=== PATIENT | female | born 1970 | race African-American/Black ===

== ENCOUNTER → 2021-01-10 07:46 | Outpatient (CLI) | payer BC, SELFPAY ==
--- NOTE | ~2021-01-10 | MM_ITS ---
EXAMINATION: MM screening bailey BI w opal HISTORY: Screening TECHNIQUE: Craniocaudal and mediolateral oblique 3-D tomosynthesis images were obtained and synthetic 2-D images were generated. CAD analysis was submitted and interpreted. COMPARISON: No prior studies for comparison. BREAST PARENCHYMAL COMPOSITION: There are scattered areas of fibroglandular density. FINDINGS: There are bilateral breast asymmetries on CC images. There are no suspicious calcifications or architectural distortion. IMPRESSION: 1. Bilateral breast asymmetries. 2. Recommend comparison to previous outside mammograms. BI-RADS Category 0: Incomplete: Needs additional imaging evaluation. Reviewed, dictated and finalized at location A.
== END ==
PROVIDERS: PCP Internal Medicine; Visit Provider Internal Medicine
DX: Z12.31 Encounter for screening mammogram for malignant neoplasm of breast (principal); R92.8 Other abnormal and inconclusive findings on diagnostic imaging of breast
CPT/HCPCS: 77063; 77067

== ENCOUNTER → 2021-01-19 00:31 | Outpatient (CLI) | payer BC, SELFPAY ==
[2021-01-19 21:52] LABS: SARS-CoV-2 RNA PCR Negative
== END ==
PROVIDERS: PCP Internal Medicine; Visit Provider Surgery
DX: Z01.812 Encounter for preprocedural laboratory examination (principal); Z20.822 Contact with and (suspected) exposure to COVID-19
CPT/HCPCS: C9803; U0003; U0005

== ENCOUNTER 2021-01-22 00:55 | Day surgery (SDC) | payer BC, SELFPAY ==
[2021-01-13 13:57] VITALS: BMI 29.0
--- NOTE | 2021-01-21 09:03 | P.PNAN_ITS ---
Anes - Initial Pre Proc Eval Procedure: Operation Date: 01/22/21 12:00 Proposed Procedures p Excisional Biopsy of Right Upper Quadrant Abdominal Wall Cyst, Excisional Biopsy Left Groin Cyst - Constance Elizabeth MD Date/Time: 01/21/21 09:03 Surgeon: Constance Elizabeth MD Pre Op Diagnosis: sebaceous cyst x 2 Patient Data Age: 50 Gender: F Height: 1.63 m Weight: 76.66 kg Allergies Allergy/AdvReac Type Severity Reaction Status Date / Time amoxicillin Allergy Severe Itching & Verified 01/13/21 13:56 shortness of breath meperidine [From Demerol] Allergy Severe Hives Verified 01/13/21 13:56 Home Medications Medication Instructions Recorded Confirmed Type ascorbate calcium (vitamin C) 500 500 mg PO DAILY 11/24/20 01/13/21 History mg tablet biotin 2,500 mcg capsule 2,500 mcg PO DAILY cap 11/24/20 01/13/21 History cholecalciferol (vitamin D3) 25 25 mcg PO DAILY 11/24/20 01/13/21 History mcg (1,000 unit) capsule mecobalamin (vitamin B12) 5,000 5,000 mcg PO DAILY 11/24/20 01/13/21 History mcg lozenge lactobacillus combination no.8 3 3,000 mmu cells PO DAILY 12/12/20 01/13/21 History billion cell capsule Patient hx anesthesia problems: none Family hx anesthesia problems: none PMFSH Past Medical History Medical History (Updated 01/21/21 @ 16:26 by Javier Cochran DO) Overweight (BMI 25.0-29.9) Snoring Surgical History Surgical History H/O removal of cyst of the wrist age 21 History of colonoscopy every 5 yrs Family History Family History Mother Cancer Father Cancer Diabetes mellitus Hypertension Social History Social History Smoking status: Never smoker Alcohol intake: current Drinks per week: 1 Alcohol use details: 3/MONTH Substance use: never Substance use type: does not use Living arrangements: alone 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 Questions were solicited and answers provided to the satisfaction of the patient/family/POA.
[2021-01-22 10:06] VITALS: BP 142/87; PULSE 75; RESP 16; TEMP 36.8; O2SAT 100
[2021-01-22] MEDS: LACTATED RINGERS 1,000 ML 30 ML IV CONT (10:46)
--- NOTE | 2021-01-22 11:58 | PM.IMHP ---
H&P: HPI History of Present Illness Date/Time: 01/22/21 11:58 Ms. Cárdenas presents today at the request of Dr. Cochran for evaluation. She reports having a RUQ chest wall mass and a left groin mass for at least 7 years, and since that time has noticed increase and size and intermittent tenderness of both. She has also been able express cyst-like material from both after applying warm compress. No history of infection to either site. Chief Complaint: sebaceous cyst x 2 Review of Systems Review of Systems: All systems reviewed & are unremarkable except as noted in HPI and below PMFSH Past Medical History Medical History Overweight (BMI 25.0-29.9) Snoring Surgical History Surgical History H/O removal of cyst of the wrist age 21 History of colonoscopy every 5 yrs Family History Family History Mother Cancer Father Cancer Diabetes mellitus Hypertension Social History Social History Smoking status: Never smoker Alcohol intake: current Drinks per week: 1 Alcohol use details: 3/MONTH Substance use: never Substance use type: does not use Living arrangements: alone 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 Gender identity (if verbalized by the patient): Female Spiritual care concerns: No Meds Home Medications and Allergies Home Medications Medication Instructions Recorded Confirmed Type ascorbate calcium (vitamin C) 500 500 mg PO DAILY 11/24/20 01/22/21 History mg tablet biotin 2,500 mcg capsule 2,500 mcg PO DAILY cap 11/24/20 01/22/21 History cholecalciferol (vitamin D3) 25 25 mcg PO DAILY 11/24/20 01/22/21 History mcg (1,000 unit) capsule mecobalamin (vitamin B12) 5,000 5,000 mcg PO DAILY 11/24/20 01/22/21 History mcg lozenge lactobacillus combination no.8 3 3,000 mmu cells PO DAILY 12/12/20 01/22/21 History billion cell capsule Allergies Allergy/AdvReac Type Severity Reaction Status Date / Time amoxicillin Allergy Severe Itching & Verified 01/22/21 10:16 shortness of breath meperidine [From Demerol] Allergy Severe Hives Verified 01/22/21 10:16 Vital Signs Vital Signs - 24 hr 01/22/21 10:06 Temperature 36.8 C Pulse Rate 75 Respiratory Rate 16 Blood Pressure 142/87 H Pulse Oximetry 100 Exam Const: General: cooperative, healthy appearing, comfortable and no acute distress Orientation/consciousness: patient oriented x3 Limitations: no limitations Resp: Effort & Inspection: normal respiratory effort Auscultation: clear to auscultation bilaterally Cardio: Rate: regular rate Rhythm: regular rhythm GI: Inspection: normal to inspection and Abdominal wall edema GI Palp: Yes Soft to palpation and No Tenderness to palpation present (GI) Skin: Other: RUQ epidermoid cyst - no s/s infection L pubis cyst - n s/s infection Assessment and Plan Assessment and plan (1) Sebaceous cyst: Code(s): L72.3 - Sebaceous cyst Status: Acute Assessment and Plan: will setup for exc bx given growth and symptomatology
--- NOTE | 2021-01-22 12:00 | WPDHPUPDATE1 ---
History and Physical Update Update Date/Time: 01/22/21 12:00 History and Physical has been reviewed, including an updated exam of the patient. There are NO changes in the patient's condition. Risks, benefits, and alternatives have been discussed and questions answered. Patient agrees to proceed with procedure.
[2021-01-22] MEDS: ceFAZolin 2 GM/D5W 50 ML 2 GM/50 ML BAG IVPB (12:03)
[2021-01-22] MEDS: BUPIVACAINE/EPINEPHRINE 0.5% 10 ML VIAL 50 ML INFILTRATE (12:28)
[2021-01-22 12:54] VITALS: BP 111/54; PULSE 90; RESP 12; O2SAT 100
--- NOTE | 2021-01-22 13:07 | W.PM.PROC2 ---
Procedure Note - Detailed Date of Procedure 01/22/21 Pre-op Diagnosis cyst x 2, R upper abdomen, L pubis Post-op Diagnosis same Procedure Performed Excisional biopsy right upper abdominal cyst measuring 3 x 2 cm and left pubic cyst measuring 2 x 1.5 cm Surgeon Constance Elizabeth MD Anesthesia MAC and local Indications 50-year-old female presenting to the office with right upper abdominal cyst and left pubic cyst. Patient reports this has been present for many years and has gotten larger in size. The patient reports these areas are now tender to palpation,although she has never noted any infection. Findings 3 x 2 cm right upper abdominal cyst and 2 x 1.5 cm left pubic cyst Description of Procedure The patient was taken the operating room and placed in the supine position. After adequate induction of mac anesthesia, the patient was prepped and draped in the normal sterile fashion. A time-out was then done to verify the patient's identity, as well as the procedure being performed. I began by localizing the area around both the cysts. I began with the right upper abdominal cyst. An elliptical incision was made with a 15 blade scalpel over the cyst. This was carried down through the dermis into the subcutaneous tissue. The cyst was noted to be entirely located within the subcutaneous tissue. I was able to excise the cyst in full. This will be sent to pathology for further review. Measurements were approximately 3 x 2 cm. Hemostasis was gained with the Bovie cautery. Subcutaneous tissue was closed with 3 0 Vicryl suture skin was closed with 4 Monocryl subcuticular suture. Dermabond was then placed on the wound. I then made an elliptical incision around the left pubic cyst. This was carried through the dermis into the subcutaneous tissue. The cyst was noted to be entirely within the subcutaneous tissue and excised in full. Again hemostasis was gained with the Bovie cautery. Subcutaneous tissue was closed with 3 0 Vicryl suture and skin was closed with 4 Monocryl subcuticular suture. Dermabond was placed on this wound. The patient tolerated these procedures well. Was alert and awake in the operating room postoperatively. She will be sent to the recovery room in stable condition. Estimated Blood Loss 5 Drains No Packing No Pathology yes Complications No immediate complications Condition stable Disposition PACU
[2021-01-22 13:25] VITALS: BP 125/69; PULSE 79
[2021-01-22 13:55] VITALS: BP 152/71; PULSE 66
== END 2021-01-22 14:05 | disposition home or self-care (01) ==
PROVIDERS: PCP Internal Medicine; Visit Provider Surgery
PROC: (CPT 11406; principal; 2021-01-22 12:00)
DX: L72.0 Epidermal cyst (principal)
CPT/HCPCS: 11406; 11403; 12034; 88304; 88305; J0690; J2250; J2405; J2704; J3010; J7120

== ENCOUNTER → 2021-03-09 14:21 | Outpatient (CLI) | payer BC, SELFPAY ==
--- NOTE | ~2021-03-09 | MMUS_ITS ---
EXAMINATION: MM diagnostic abiley BI w opal, US breast BI complete HISTORY: Bilateral breast asymmetries reported on 01/10/2021 screening mammogram TECHNIQUE: Additional 3-D tomosynthesis images of both breasts were performed and synthetic 2-D image s were generated. CAD analysis was submitted and interpreted. High resolution bilateral complete martha st ultrasound was performed. COMPARISON: 01/10/2021 bilateral digital screening mammogram FINDINGS: MAMMOGRAPHIC FINDINGS: There is a 6 mm benign-appearing circumscribed opacity situated anteriorly in the lower inner right b reast. No suspicious mass is noted in either breast. No architectural distortion, malignant calcifica tion, skin thickening or retraction. ULTRASOUND: Right breast: No suspicious mass is identified in the right breast. Left breast: 3.3 mm probable cyst at 12:00 3 cm from nipple 5.8 x 7 mm probable cyst at 2:00 2 cm from nipple Septated 4.7 x 9.3 mm cyst at 2:00 3 cm from nipple. 3 mm cyst at 2:00 3 cm from nipple. Oval parallel sonolucency measuring 2.2 x 4 mm at 3:00 5 cm from nipple and with through transmission , likely a small cyst 9:00 4 cm from nipple: Parallel circumscribed hypoechoic solid lesion with mildly irregular margins, measuring 4.4 x 5.2 mm. There is adjacent vascularity on color flow imaging. Considering the mildly i rregular margins, ultrasound-guided biopsy is recommended. IMPRESSION: 1. Mildly irregular 4.4 x 5.2 mm mass at left breast 9:00 position 4 cm from nipple 2. Ultrasound-guided biopsy of left breast 9:00 lesion is recommended BI-RADS category 4, suspicious findings. Dr. Parker telephoned the report and ultrasound guided biopsy recommendation on 03/10/20[address] Cochran's exchange at [phone]. Reviewed, dictated and finalized at location A. IMPRESSION: 1. Mildly irregular 4.4 x 5.2 mm mass at left breast 9:00 position 4 cm from ni pple 2. Ultrasound-guided biopsy of left breast 9:00 lesion is recommended BI-RADS category 4, suspicious findings. Dr. Parker telephoned the report and ultrasound guided biopsy recommendation on at [address] Cochran's exchange at [phone]. IMPRESSION: 1. Mildly irregular 4.4 x 5.2 mm mass at left breast 9:00 position 4 cm from ni pple 2. Ultrasound-guided biopsy of left breast 9:00 lesion is recommended BI-RADS category 4, suspicious findings. Dr. Parker telephoned the report and ultrasound guided biopsy recommendation on at [address] Cochran's exchange at [phone].
== END ==
PROVIDERS: PCP Internal Medicine; Visit Provider Internal Medicine
DX: R92.8 Other abnormal and inconclusive findings on diagnostic imaging of breast (principal)
CPT/HCPCS: 76641; 77062; 77066; G0279

== ENCOUNTER 2021-04-13 10:44 | Outpatient (CLI) | payer BC, SELFPAY ==
--- NOTE | ~2021-04-13 | MMUS_ITS ---
US breast biopsy LT w image, MM post biopsy invasive LT EXAMINATION: US GUIDED NEEDLE BIOPSY WITH VAC UUM ASSISTANCE DATE: 04/13/2021 11:59 CDT INDICATION: Left breast mass seen on prior examination. Ultrasound-guided core biopsy is requested t o evaluate for malignancy. TECHNIQUE AND FINDINGS: The risks and potential benefits of the procedure were discussed with the patient, and written inform ed consent was obtained. After sterile preparation of the left breast, 1% lidocaine was utilized for local anesthesia. 1% lidocaine with epinephrine was used for deep anesthesia. A 10G vacuum-assisted biopsy gun needle was advanced through to the outer edge of the region of inter est from a superior medial approach utilizing sonographic guidance. A total of 6 tissue core samples were obtained through the lesion located at the 9:00 position, 4 cm from the nipple. An Inrad tissu e marker clip was then placed at the biopsy site. Hemostasis was achieved. The patient tolerated procedure well and there was no evidence of immediate complication. The patien t was given verbal instructions partly is from the department. Left breast mammograms to document ti ssue marker clip placement. The tissue samples were submitted to surgical pathology for histologic an alysis. IMPRESSION: 1. Successful ultrasound-guided vacuum-assisted biopsy of left breast mass with tissue marker placem ent. Please refer to pathology report for histologic analysis. Reviewed, dictated and finalized at location A. IMPRESSION: 1. Successful ultrasound-guided vacuum-assisted biopsy of left breast mass wit h tissue marker placement. Please refer to pathology report for histologic anal ysis.
== END 2021-04-13 10:45 | disposition home or self-care (01) ==
PROVIDERS: PCP Internal Medicine; Visit Provider Internal Medicine
DX: R92.8 Other abnormal and inconclusive findings on diagnostic imaging of breast (principal)
CPT/HCPCS: 19083; 88305; 88342; A4648

== ENCOUNTER → 2021-05-15 02:51 | Outpatient (CLI) | payer BC, SELFPAY ==
[2021-05-15 18:36] LABS: SARS-CoV-2 RNA PCR Negative
== END ==
PROVIDERS: PCP Internal Medicine; Visit Provider Surgery
DX: Z01.812 Encounter for preprocedural laboratory examination (principal); Z20.822 Contact with and (suspected) exposure to COVID-19
CPT/HCPCS: C9803; U0003; U0005

== ENCOUNTER 2021-05-18 01:30 | Day surgery (SDC) | payer BC, SELFPAY ==
[2021-05-15 08:52] VITALS: BMI 29.8
[2021-05-18] VITALS (8 sets, daily range): BP systolic 134–166; BP diastolic 74–86; PULSE 51–71; RESP 13–18; TEMP 36.1–37; O2SAT 100; BMI 30.3
--- NOTE | ~2021-05-18 | MM_ITS ---
EXAMINATION: MM needle loc LT, MM surgical specimen LT DATE: 05/18/2021 08:27 (accession [id number]), 05/18/2021 10:58 (accession [id number]) INDICATION: Wire localization of the lower inner left breast for surgical excision TECHNIQUE: The procedure for a mammography-guided needle localization was discussed with the patient. Risks and benefits were detailed including risks of bleeding and infection. The patient verbalized u nderstanding and agreed to proceed. A time out was performed to verify the patient's name, date of , and site of procedure. The wu ent was placed in mediolateral compression, and the skin overlying the left breast was prepared in u sual fashion. The skin and subcutaneous soft tissues were infiltrated with 1% lidocaine for local ane sthesia. Utilizing mammography guidance, a needle was advanced into the left breast. Two confirmatory films were obtained. The patient tolerated procedure without immediate complication. A specimen radiograph was performed. FINDINGS: Two view confirmatory films of the left breast demonstrate a needle with tip adjacent to bi opsy marker. The biopsy marker is contained within the surgical specimen. IMPRESSION: 1. Successful mammography-guided left breast needle localization. Reviewed, dictated and finalized at location A. IMPRESSION: 1. Successful mammography-guided left breast needle localization.
--- NOTE | 2021-05-18 08:18 | SUR.PREOP ---
PT ARRIVED LATE. HAD A 0630 ARRIVAL TIME. CHECKED IN ROOM 10 AT 0719.
[2021-05-18] MEDS: LACTATED RINGERS 1,000 ML 30 ML IV CONT ×2 (08:44→11:08)
--- NOTE | 2021-05-18 09:14 | WPDANESEPPF ---
Anes - Initial Pre Proc Eval Procedure: Operation Date: 05/18/21 10:30 Proposed Procedures p Excisional Breast Biopsy of Left Intraductal Papilloma with Ultrasound and/or Mammogram Guided Needle Localization - Constance Elizabeth MD Date/Time: 05/18/21 09:14 Surgeon: Constance Elizabeth MD Pre Op Diagnosis: Left intraductal papilloma Patient Data Age: 51 Gender: F Height: 1.63 m Weight: 80.1 kg Last Vital Signs Temp 37.0 C 05/18/21 08:40 Pulse 71 05/18/21 08:40 Resp 14 05/18/21 08:40 BP 135/74 05/18/21 08:40 Pulse Ox 100 05/18/21 08:40 Allergies Allergy/AdvReac Type Severity Reaction Status Date / Time amoxicillin Allergy Severe Itching & Verified 05/18/21 08:46 shortness of breath meperidine [From Demerol] Allergy Severe Hives Verified 05/18/21 08:46 Home Medications Medication Instructions Recorded Confirmed Type ascorbate calcium (vitamin C) 500 500 mg PO DAILY 11/24/20 05/15/21 History mg tablet biotin 2,500 mcg capsule 2,500 mcg PO DAILY cap 11/24/20 05/15/21 History cholecalciferol (vitamin D3) 25 25 mcg PO DAILY 11/24/20 05/15/21 History mcg (1,000 unit) capsule mecobalamin (vitamin B12) 5,000 5,000 mcg PO DAILY 11/24/20 05/15/21 History mcg lozenge lactobacillus combination no.8 3 3,000 mmu cells PO DAILY 12/12/20 05/15/21 History billion cell capsule Patient hx anesthesia problems: post op nausea/vomiting Family hx anesthesia problems: none Results Review: All pre-operative results and documents have been reviewed as part of the pre-operative evaluation. [facility] Past Medical History Medical History Overweight (BMI 25.0-29.9) Snoring Surgical History Surgical History H/O excision of epidermal inclusion cyst Excisional biopsy right upper abdominal cyst measuring 3 x 2 cm and left pubic cyst measuring 2 x 1.5 cm 01/22/21 H/O removal of cyst of the wrist age 21 History of colonoscopy every 5 yrs Family History Family History Mother Cancer Father Cancer Diabetes mellitus Hypertension Social History Social History Smoking status: Never smoker Alcohol intake: current Drinks per week: 1 Alcohol use details: RARE Substance use: never Substance use type: does not use Living arrangements: alone 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 Informed Consent: The patient's anesthetic plan and its attendant risks and benefits were discussed with the patient/family/POA. Questions were solicited and answers provided to the satisfaction of the patient/family/POA.
--- NOTE | 2021-05-18 09:31 | WPDHPUPDATE1 ---
History and Physical Update Update Date/Time: 05/18/21 09:31 History and Physical has been reviewed, including an updated exam of the patient. There are NO changes in the patient's condition. Risks, benefits, and alternatives have been discussed and questions answered. Patient agrees to proceed with procedure.
[2021-05-18] MEDS: ceFAZolin 2 GM/D5W 50 ML 2 GM/50 ML BAG IVPB (10:09)
[2021-05-18] MEDS: SCOPOLAMINE 1.5 MG PATCH TRANSDERM (10:15)
[2021-05-18] MEDS: LIDO 1%/EPINEPHRINE 1:100,000 50 ML VIAL 10 ML INFILTRATE (10:39)
--- NOTE | 2021-05-18 11:10 | P.OP_ITS ---
Procedure Note - Detailed Date of Procedure 05/18/21 Pre-op Diagnosis Left intraductal papilloma Post-op Diagnosis same Procedure Performed excisional biopsy/lumpectomy left breast intraductal papilloma with preoperative needle localization Surgeon Constance Elizabeth MD Anesthesia general and local Indications 51 y/o F c L breast intraductal papilloma Findings marker located in middle of specimen on postop imaging Description of Procedure The patient was taken to the operating room and placed in the supine position. After adequate induction of general anesthesia, the patient was prepped and draped in the normal sterile fashion. A time-out was then done to verify the patient's identity, as well as the procedure being performed. Began by localizing the area around the previously placed wire. I then made a curvilinear incision just medial to the wire. Once to the level of the breast tissue, I raised flaps around the incision to separate the breast tissue off the overlying dermis. The wire was encountered at this point and brought into the operative field. I then carefully dissected around the wire making sure to get adequate tissue especially around the tip of the wire. Once I was circumferent ially around the wire, I dissected posteriorly and excise the specimen. Of note, the wire was incidentally removed at this point. I then marked the specimen with a short stitch superiorly and a long stitch laterally. The tissue was then sent to imaging, and the marker was confirmed within the specimen. I then gained hemostasis with the Bovie cautery. The subcutaneous tissue was closed with 3-0 Vicryl suture. The skin was closed with 4-0 Monocryl subcuticular suture. Dermabond was then placed on the wound. The patient tolerated the procedure well and was extubated in the operating room postoperatively. She will be sent to the recovery room in stable condition. Estimated Blood Loss 10 Drains No Packing No Pathology yes Complications No immediate complications Condition stable Disposition PACU
[2021-05-18] MEDS: fentaNYL CITRATE INJ (*CRX) 100 MCG/2 ML VIAL 25 MCG IV PUSH ×3 (11:22→11:39)
[2021-05-18] MEDS: oxyCODONE HCL (*CRX) 5 MG TAB IR PO (12:23)
--- NOTE | 2021-05-18 13:16 | SUR.PHASEII ---
1305 PT MEETS ANESTHESIA DISCHARGE CRITERIA. PT DRESSED & WAITING FOR RIDE HOME.
== END 2021-05-18 13:22 | disposition home or self-care (01) ==
PROVIDERS: PCP Internal Medicine; Visit Provider Surgery
PROC: (CPT 19125; principal; 2021-05-18 10:30)
DX: D24.2 Benign neoplasm of left breast (principal); N60.42 Mammary duct ectasia of left breast; N60.32 Fibrosclerosis of left breast; R06.83 Snoring
CPT/HCPCS: 19125; 19281; 76098; 88307; 88342; A9270; C1769; J0690; J1100; J1200; J2250; J2405; J2704; J3010; J7120

== ENCOUNTER 2021-05-29 00:29 | Emergency (ER) | payer BC, SELFPAY ==
[2021-05-29 00:33] VITALS: BP 153/91; PULSE 92; RESP 18; TEMP 36.5; O2SAT 99
--- NOTE | 2021-05-29 01:00 | ED.GENADULT ---
HPI - General Adult General Chief complaint: Wound/Laceration Stated complaint: open wound after breast surgery Time Seen by Provider: 05/29/21 00:51 History of Present Illness HPI narrative: Patient 51-year-old female presents emerged department with chief complaint of drainage from surgical incision on the left breast. The patient reports she had a mass removed from her left breast by Dr. Elizabeth and was seen in the office recently. Patient states his evening she noticed the area started to feel uncomfortable and then the incision opened up and started draining a very dark blood from the wound. Patient states it feels sore denies fever denies purulent drainage. Related Data Home Medications Medication Instructions Recorded Confirmed ascorbate calcium (vitamin C) 500 500 mg PO DAILY 11/24/20 05/27/21 mg tablet biotin 2,500 mcg capsule 2,500 mcg PO DAILY cap 11/24/20 05/27/21 cholecalciferol (vitamin D3) 25 25 mcg PO DAILY 11/24/20 05/27/21 mcg (1,000 unit) capsule mecobalamin (vitamin B12) 5,000 5,000 mcg PO DAILY 11/24/20 05/27/21 mcg lozenge lactobacillus combination no.8 3 3,000 mmu cells PO DAILY 12/12/20 05/27/21 billion cell capsule Allergies Allergy/AdvReac Type Severity Reaction Status Date / Time amoxicillin Allergy Severe Itching & Verified 05/29/21 01:05 shortness of breath meperidine [From Demerol] Allergy Severe Hives Verified 05/29/21 01:05 Review of Systems Review of Systems: A 10 system review of systems was completed on the patient and is negative except for what is stated in the HPI. Nursing and ancillary documentation was reviewed. [facility] Past Medical History Medical History Overweight (BMI 25.0-29.9) Snoring Surgical History Surgical History H/O excision of epidermal inclusion cyst Excisional biopsy right upper abdominal cyst measuring 3 x 2 cm and left pubic cyst measuring 2 x 1.5 cm 01/22/21 H/O removal of cyst of the wrist age 21 History of colonoscopy every 5 yrs History of excision of mass Family History Family History Mother Cancer Father Cancer Diabetes mellitus Hypertension Social History Social History Smoking status: Never smoker Alcohol intake: current Drinks per week: 1 Alcohol use details: RARE Substance use: never Substance use type: does not use 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 HEAD: Normocephalic, atraumatic. EYES: PERRLA and EOMI. ENT: Nares clear, no rhinorrhea or epistaxis. Mucous membranes moist. NECK: Supple. CHEST: Clear to auscultation. No respiratory distress. Breast: There is a incision present inferior to the nipple on the left breast. There is no fluctuance there is no crepitance there is some dark red blood that has drained on a dressing. HEART: Regular rate and rhythm. No murmur heard. Normal peripheral pulses. ABDOMEN: Soft, nontender, nondistended, normal active bowel sounds. EXTREMITIES: Normal range of motion. No edema. SKIN: Warm, dry, no rash. NEURO: No focal deficits. Alert and oriented x3. PSYCH: Normal mood and affect. Course Vital Signs Vital signs: Vital Signs Temperature 36.5 C 05/29/21 00:33 Pulse Rate 92 05/29/21 00:33 Respiratory Rate 18 05/29/21 00:33 Blood Pressure 153/91 H 05/29/21 00:33 Pulse Oximetry 99 05/29/21 00:33 Temperature 36.5 C 05/29/21 00:33 Pulse Rate 92 05/29/21 00:33 Respiratory Rate 18 05/29/21 00:33 Blood Pressure 153/91 H 05/29/21 00:33 Pulse Oximetry 99 05/29/21 00:33 Medical
[2021-05-29] MEDS: CEPHALEXIN 500 MG CAPSULE PO (01:20)
== END 2021-05-29 01:21 | disposition home or self-care (01) ==
PROVIDERS: Emergency Provider Emergency Medicine; PCP Internal Medicine
DX: L76.34 Postprocedural seroma of skin and subcutaneous tissue following other procedure (principal)
CPT/HCPCS: 99283; A9270

== ENCOUNTER 2022-03-11 13:00 | Outpatient (CLI) | payer BC, SELFPAY ==
--- NOTE | ~2022-03-11 | MMUS_ITS ---
EXAMINATION: MM diagnostic bailey RT w opal, US breast RT complete HISTORY: Intermittent right breast pain since left-sided breast surgery. TECHNIQUE: ML, MLO and CC 3-D tomosynthesis images of the right breast were performed and synthetic 2 -D images were generated. CAD analysis was submitted and interpreted. High resolution complete right breast ultrasound including all 4 quadrants and subareolar area was performed. COMPARISON: 03/09/2021 bilateral diagnostic mammography and bilateral complete breast ultrasound 01/10/2021 bilateral screening mammogram BREAST PARENCHYMAL COMPOSITION: The breasts are heterogeneously dense, which may obscure small masses . FINDINGS: MAMMOGRAPHIC FINDINGS: No suspicious mass or architectural distortion, malignant calcification, skin thickening or retractio n or significant new or developing density is detected. ULTRASOUND: 1:00 6 cm from nipple: 3.7 x 2.9 x 3.6 mm mm cyst with through transmission and no internal vasculari ty. 2:00: 2.3 x 1.6 mm parallel circumscribed hypoechoic lesion with no internal vascularity or posterior shadowing 5:00 2 cm from nipple: 2.4 x 3.8 mm parallel circumscribed hypoechoic lesion without suspicious shado wing 9:00: 6.3 x 3.4 x 5.1 mm circumscribed hypoechoic lesion with through transmission posterior enhancem ent, likely a complicated cyst IMPRESSION: 1. Benign findings; no mammographic evidence of malignancy 2. Routine annual mammographic screening is recommended. BI-RADS Category 2: Benign finding(s). Reviewed, dictated and finalized at location A. IMPRESSION: 1. Benign findings; no mammographic evidence of malignancy 2. Routine annual mammographic screening is recommended. BI-RADS Category 2: Benign finding(s).
== END 2022-03-11 13:01 | disposition home or self-care (01) ==
PROVIDERS: PCP Internal Medicine; Visit Provider Internal Medicine
DX: R92.8 Other abnormal and inconclusive findings on diagnostic imaging of breast (principal); D24.2 Benign neoplasm of left breast
CPT/HCPCS: 76641; 77061; 77065; G0279

== ENCOUNTER 2023-10-07 15:08 | Outpatient (CLI) | payer BC, SELFPAY ==
--- NOTE | ~2023-10-07 | US_ITS ---
EXAMINATION: US soft tissue head and neck DATE: 10/07/2023 15:45 INDICATION: Left neck mass. TECHNIQUE: Multiple grayscale and Doppler ultrasound images of the head and neck were obtained. COMPARISON: None FINDINGS: In the left submandibular region, there is a 2.7 x 2.1 x 1.3 cm mass that is isoechoic to n ormal subcutaneous fat with similar echotexture. IMPRESSION: 1. 2.7 cm mass in left submandibular region, most likely a lipoma. Neck CT with contrast is recommend ed. Reviewed, dictated and finalized at location E. CTION COUNSELOR IMPRESSION: 1. 2.7 cm mass in left submandibular region, most likely a lipoma. Neck CT with contrast is recommended.
== END 2023-10-07 15:09 | disposition home or self-care (01) ==
PROVIDERS: PCP Family Medicine; Visit Provider Nurse Practitioner
DX: R22.1 Localized swelling, mass and lump, neck (principal)
CPT/HCPCS: 76536

== ENCOUNTER 2023-11-21 13:37 | Outpatient (CLI) | payer BC, SELFPAY ==
--- NOTE | ~2023-11-21 | MR_ITS ---
MRI of the right knee Clinical history: Pain Technique: Coronal proton density and proton density-weighted images, sagittal proton-density and T2 fat-sat images, and axial proton-density fat-saturated images were acquired. Findings: Anterior and posterior cruciate ligaments are intact. Medial collateral ligament and the la teral collateral ligament complex are intact. There is soft tissue edema about the MCL. Popliteus ten don is intact. There is focal tearing of the free edge of the posterior horn of the medial meniscus. Lateral meniscu s is intact, without evidence of tear. There is focal mild to moderate chondral malacia at the patellar apex. Articular cartilage in the med ial lateral compartments is minimally thinned. Bone marrow signals are unremarkable. Extensor mechanism is intact. Small joint effusion present. No significant Johnston's cyst. Impression: Focal tearing of the free edge of the posterior horn of the medial meniscus. Reactive soft tissue edema about the MCL versus possibly grade 1 sprain. Correlate for any history of trauma/injury. 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 Reviewed, dictated and finalized at location . Impression: Focal tearing of the free edge of the posterior horn of the medial meniscus. Reactive soft tissue edema about the MCL versus possibly grade 1 sprain. Correl ate for any history of trauma/injury. 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
== END 2023-11-21 13:38 ==
PROVIDERS: Visit Provider Physician Assistant
DX: S83.241A Other tear of medial meniscus, current injury, right knee, initial encounter (principal); M22.41 Chondromalacia patellae, right knee; X58.XXXA Exposure to other specified factors, initial encounter
CPT/HCPCS: 73721

== ENCOUNTER 2024-05-07 01:02 | Day surgery (SDC) | payer BC, SELFPAY ==
[2024-04-30 10:52] VITALS: BMI 29.9
[2024-05-07 08:24] VITALS: BMI 30.5
[2024-05-07 08:25] VITALS: BP 145/86; PULSE 71; RESP 18; TEMP 36.3; O2SAT 100
[2024-05-07] MEDS: LACTATED RINGERS 1,000 ML 150 ML IV CONT (08:41)
[2024-05-07 08:45] LABS: BEDSIDEPREGUCG Negative (Negative)
--- NOTE | 2024-05-07 09:13 | WPDANESEPPF ---
Anes - Initial Pre Proc Eval Procedure: Operation Date: 05/07/24 09:30 Proposed Procedures p Screening Colonoscopy - Sergio Rome DO Date/Time: 05/07/24 09:13 Surgeon: Sergio Rome DO Pre Op Diagnosis: Screening for malignant neoplasm of colon Patient Data Age: 54 Gender: F Height: 1.63 m Weight: 80.7 kg Last Vital Signs Temp 97.4 F L 05/07/24 08:25 Pulse 71 05/07/24 08:25 Resp 18 05/07/24 08:25 BP 145/86 H 05/07/24 08:25 Pulse Ox 100 05/07/24 08:25 O2 Del Method Room Air 05/07/24 08:25 Allergies Allergy/AdvReac Type Severity Reaction Status Date / Time amoxicillin Allergy Severe Itching & Verified 05/07/24 08:23 shortness of breath meperidine [From Demerol] Allergy Severe Hives Verified 05/07/24 08:23 Home Medications Medication Instructions Recorded Confirmed Type ascorbate calcium (vitamin C) 500 500 mg PO DAILY 11/24/20 04/30/24 History mg tablet biotin 2,500 mcg capsule 2,500 mcg PO DAILY 11/24/20 04/30/24 History cholecalciferol (vitamin D3) 25 25 mcg PO DAILY 11/24/20 05/07/24 History mcg (1,000 unit) capsule mecobalamin (vitamin B12) 5,000 5,000 mcg PO DAILY 11/24/20 04/30/24 History mcg lozenge lactobacillus combination no.8 3 3,000 mmu cells PO DAILY 12/12/20 04/30/24 History billion cell capsule (Adult Probiotic) Laboratory Tests 05/07/24 08:43 POC Urine HCG, Qual Negative (Negative) Patient hx anesthesia problems: none Family hx anesthesia problems: none Results Review: All pre-operative results and documents have been reviewed as part of the pre-operative evaluation. [facility] Past Medical History Medical History Overweight (BMI 25.0-29.9) Snoring Wound infection after surgery Surgical History Surgical History H/O excision of epidermal inclusion cyst Excisional biopsy right upper abdominal cyst measuring 3 x 2 cm and left pubic cyst measuring 2 x 1.5 cm 01/22/21 H/O lumpectomy exc biopsy/lumpectomy left breast intraductal pailloma w/ preoperative needle localization 05/18/21 H/O removal of cyst of the wrist age 21 History of colonoscopy every 5 yrs History of excision of mass Family History Family History Mother Cancer Father Cancer Diabetes mellitus Hypertension Social History Social History Smoking status: Never smoker Alcohol intake: never Drinks per week: 1 Alcohol use details: RARE Substance use: never Substance use type: does not use Lack of Transportation: No Lack of Food: Never True Current Housing: I Have Housing Concerned About Future Housing: No Difficulty Paying Gas/Electric Bills: No Difficulty Paying for Meds: No Currently Unemployed: No Education: Associate Degree Difficulty w/ Childcare or Family Care: No Living arrangements: alone Occupation/Education: occupation 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 Informed Consent: The patient's anesthetic plan and its attendant risks and benefits were discussed with the patient/family/POA. Questions were solicited and answers provided to the satisfaction of the patient/famil
--- NOTE | 2024-05-07 09:28 | PM.IMHP ---
H&P: HPI History of Present Illness Date/Time: 05/07/24 09:28 Chief Complaint: family history of colon cancer Narrative: this is a 54-year-old woman who presents for colonoscopy. Her last colonoscopy was about 5 years ago. She has a family history of colon cancer in her mother. She denies any hematochezia or melena. Review of Systems Review of Systems: All systems reviewed & are unremarkable except as noted in HPI and below Constitutional: Constitutional: Denies chills, Denies fever(s), Denies headache(s) and Denies weight loss Eyes: Eyes: Denies change in vision ENT: Denies dizziness, Denies headache(s), Denies neck mass and Denies throat swelling Cardiovascular: Cardiovascular: Denies chest pain, Denies lightheadedness and Denies dyspnea Respiratory: Respiratory: Denies cough, Denies dyspnea and Denies wheezing Gastrointestinal: Gastrointestinal: Denies abdominal pain, Denies change in bowel habits, Denies nausea and Denies vomiting Genitourinary: Genitourinary: Denies hematuria and Denies dysuria Musculoskeletal: Musculoskeletal: Reports as per HPI Integumentary/Breasts: Skin/Breast: Reports as per HPI Neurologic: Denies dizziness and Denies headache(s) Allergic/Immunologic: Allergic/Immunologic: Denies throat swelling and Denies wheezing PMFSH Past Medical History Medical History Overweight (BMI 25.0-29.9) Snoring Wound infection after surgery Surgical History Surgical History H/O excision of epidermal inclusion cyst Excisional biopsy right upper abdominal cyst measuring 3 x 2 cm and left pubic cyst measuring 2 x 1.5 cm 01/22/21 H/O lumpectomy exc biopsy/lumpectomy left breast intraductal pailloma w/ preoperative needle localization 05/18/21 H/O removal of cyst of the wrist age 21 History of colonoscopy every 5 yrs History of excision of mass Family History Family History Mother Cancer Father Cancer Diabetes mellitus Hypertension Social History Social History Smoking status: Never smoker Alcohol intake: never Drinks per week: 1 Alcohol use details: RARE Substance use: never Substance use type: does not use Lack of Transportation: No Lack of Food: Never True Current Housing: I Have Housing Concerned About Future Housing: No Difficulty Paying Gas/Electric Bills: No Difficulty Paying for Meds: No Currently Unemployed: No Education: Associate Degree Difficulty w/ Childcare or Family Care: No Living arrangements: alone Occupation/Education: occupation 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 Gender identity (if verbalized by the patient): Female Spiritual care concerns: No Meds Home Medications and Allergies Home Medications Medication Instructions Recorded Confirmed Type ascorbate calcium (vitamin C) 500 500 mg PO DAILY 11/24/20 04/30/24 History mg tablet biotin 2,500 mcg capsule 2,500 mcg PO DAILY 11/24/20 04/30/24 History cholecalciferol (vitamin D3) 25 25 mcg PO DAILY 11/24/20 05/07/24 History mcg (1,000 unit) capsule mecobalamin (vitamin B12) 5,000 5,000 mcg PO DAILY 11/24/20 04/30/24 History mcg lozenge lactobacillus combination no.8 3 3,000 mmu cells PO DAILY 12/12/20 04/30/24 History billion cell capsule (Adult Probiotic) Allergies Allergy/AdvReac Type Severity Reaction Status Date / Time amoxicillin Allergy Severe Itching & Verified 05/07/24 08:23 shortness of breath meperidine [From Demerol] Allergy Severe Hives Verified 05/07/24 08:23 Vital Signs Vital Signs - 24 hr 05/07/24 08:25 Temperature 97.4 F L Pulse Rate 71 Respiratory Rate 18 Blood Pressure 145/86 H Pulse Oximetry 100 Oxygen Delivery Room Air Exam Const: General: no acute dis
[2024-05-07 10:09] VITALS: BP 117/74; PULSE 77; RESP 26; O2SAT 100
[2024-05-07 10:19] VITALS: BP 112/70; PULSE 74; RESP 18; O2SAT 100
[2024-05-07 10:29] VITALS: BP 117/77; PULSE 77; RESP 26; O2SAT 100
== END 2024-05-07 10:46 | disposition home or self-care (01) ==
PROVIDERS: Anesthesiology; PCP Family Medicine; Visit Provider Surgery
PROC: 0DJD8ZZ Inspection of Lower Intestinal Tract, Via Natural or Artificial Opening Endoscopic (ICD-10-PCS; CPT 45378; principal; 2024-05-07 09:30)
DX: Z12.11 Encounter for screening for malignant neoplasm of colon (principal); E66.9 Obesity, unspecified; Z68.30 Body mass index [BMI] 30.0-30.9, adult; Z98.890 Other specified postprocedural states; Z80.0 Family history of malignant neoplasm of digestive organs
CPT/HCPCS: 45378; J2704; J7120

== ENCOUNTER 2025-05-29 10:39 | Outpatient (CLI) | payer BC, SELFPAY ==
--- NOTE | ~2025-05-29 | US_ITS ---
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 Subcentimeter nonspecific simple cyst noted within the right submandibular gland itself. IMPRESSION: Probable lipoma. If there is pain in this location or there remains clinical concern MRI is recommended Reviewed, dictated and finalized at location P.
== END 2025-05-29 10:40 | disposition home or self-care (01) ==
LOC: MICIMG 10:40
PROVIDERS: PCP Family Medicine; Visit Provider Family Medicine
DX: D17.9 Benign lipomatous neoplasm, unspecified (principal)
CPT/HCPCS: 76536